=== PATIENT | female | born 1980 | race Caucasian/White ===

== ENCOUNTER 2021-09-02 06:04 | Day surgery (SDC) | payer OTHER ==
[~2021-09-02] VITALS: Ht 167.6 cm; Wt 95.3 kg
[2021-09-02] MEDS ORDERED: fentaNYL citrate 0.05 MG/ML VIAL ONE (07:48)
[2021-09-02] MEDS ORDERED: MIDAZOLAM 2 MG/2 ML VIAL ONE (07:48)
[2021-09-02] MEDS ORDERED: MIDAZOLAM 2 MG/2 ML VIAL IVP ONE (08:15)
== END 2021-09-02 08:50 | disposition home or self-care (01) ==
LOC: MDS 06:04 → MMU 06:16 → MDS 08:50
PROVIDERS: ATTEND Internal Medicine Gastroenterology
DX: K21.00 Gastro-esophageal reflux disease with esophagitis, without bleeding (principal); K44.9 Diaphragmatic hernia without obstruction or gangrene; R13.10 Dysphagia, unspecified; I10 Essential (primary) hypertension; E11.9 Type 2 diabetes mellitus without complications; F32.9 Major depressive disorder, single episode, unspecified; F41.9 Anxiety disorder, unspecified; E66.9 Obesity, unspecified; Z98.84 Bariatric surgery status; E78.00 Pure hypercholesterolemia, unspecified; Z90.49 Acquired absence of other specified parts of digestive tract; Z80.0 Family history of malignant neoplasm of digestive organs; Z79.4 Long term (current) use of insulin; Z79.899 Other long term (current) drug therapy; Z68.33 Body mass index [BMI] 33.0-33.9, adult
CPT/HCPCS: 36415; 43239; 81025; 86677; J2250; J3010